=== PATIENT | male | born 1985 | race African-American/Black ===

== ENCOUNTER 2018-09-13 18:54 | Emergency (ER) | payer OTHER ==
[~2018-09-13] VITALS: Ht 175.3 cm; Wt 63.5 kg
[2018-09-13] MEDS ORDERED: IBUPROFEN 800800 M1 PO (20:04)
[2018-09-13 20:27] VITALS: BP 110/82
== END 2018-09-13 20:27 | disposition home or self-care (01) ==
LOC: ER 18:54
DX: S93.622A Sprain of tarsometatarsal ligament of left foot, initial encounter (principal); W23.0XXA Caught, crushed, jammed, or pinched between moving objects, initial encounter; Y93.89 Activity, other specified; Y92.89 Other specified places as the place of occurrence of the external cause; Y99.8 Other external cause status